=== PATIENT | male | born 1995 | race African-American/Black ===

== ENCOUNTER 2022-12-23 16:00 | Emergency (ER) | payer OTHER ==
[~2022-12-23] VITALS: Ht 175.3 cm; Wt 100.0 kg
[2022-12-23 16:28] VITALS: BP 142/72
[2022-12-23] MEDS ORDERED: ACET-2708 MT (18:50)
[2022-12-23] MEDS ORDERED: ACETAMINOPHEN 325MG TABLET PO ONE (19:00)
[2022-12-23] MEDS ORDERED: OXYCODONE HCL/ACETAMINOPHEN 5/325MG TABLET PO ONE (19:00)
== END 2022-12-23 20:25 | disposition home or self-care (01) ==
LOC: ER 16:00
DX: S82.832A Other fracture of upper and lower end of left fibula, initial encounter for closed fracture (principal); W50.0XXA Accidental hit or strike by another person, initial encounter; Y93.63 Activity, rugby; Y92.328 Other athletic field as the place of occurrence of the external cause
CPT/HCPCS: 29505; 73590; 73610; 73630; 99284